=== PATIENT | male | born 1955 | race Native Hawaiian/Other Pacific Islander ===

== ENCOUNTER 2020-05-10 01:28 | Emergency (ER) | payer OTHER ==
[~2020-05-10] VITALS: Ht 172.7 cm; Wt 95.3 kg
[2020-05-10 01:28] VITALS: BP 132/70; TEMP 98.5
[2020-05-10 02:05] LABS: POTASSIUM 3.7 mmol/L (3.6-5.2)
[2020-05-10 02:16] LABS: PLATELET COUNT 148 K/uL (142-355)
[2020-05-10] MEDS ORDERED: GLIM2TAB PO (03:47)
[2020-05-10] MEDS ORDERED: ASPI81TA4 PO (03:48)
[2020-05-10] MEDS ORDERED: LIPITOR40 MG PO (03:50)
[2020-05-10] MEDS ORDERED: DIVA500T2 PO (03:55)
[2020-05-10] MEDS ORDERED: METFORMIN HCL PO ×2 (03:59→04:00)
[2020-05-10] MEDS ORDERED: PAXIL20 MG PO (04:02)
[2020-05-10] MEDS ORDERED: PROVERA5 MG PO (04:04)
[2020-05-10] MEDS ORDERED: SEROQUEL50 MG PO ×2 (04:06→04:07)
[2020-05-10] MEDS ORDERED: TRAMADOL HYDROC50 MG PO (04:08)
[2020-05-10] MEDS ORDERED: TRIA0.1C5 TOP (04:11)
[2020-05-10] MEDS ORDERED: ENAL5TAB PO (04:12)
== END 2020-05-10 02:42 | disposition other institution (70) ==
LOC: ED 01:28
PROVIDERS: Family Medicine
DX: F03.91 Unspecified dementia, unspecified severity, with behavioral disturbance (principal); Z11.59 Encounter for screening for other viral diseases; Z04.6 Encounter for general psychiatric examination, requested by authority
CPT/HCPCS: 36415; 80053; 81000; 85027; 87635; 93005; 99285; U0003

== ENCOUNTER 2020-08-19 15:08 | Emergency (ER) | payer OTHER ==
[~2020-08-19] VITALS: Ht 157.5 cm; Wt 93.0 kg
[~2020-08-19 15:08] MED LIST: ASPI81TA4 PO; CHOL100034 PO; CYAN10009 IM; DIVA250T PO; DIVA500T2 PO; ENAL5TAB PO; ESCI10TA PO; GLIM2TAB PO; LIPITOR40 MG PO; MEDR2.5T19 PO; METF500T PO; METFORMIN HCL PO; PAXIL20 MG PO; PROVERA5 MG PO; RISP0.25 PO; SEROQUEL50 MG PO; TRAMADOL HYDROC50 MG PO; TRIA0.1C5 TOP
[2020-08-19 15:16] VITALS: BP 148/81; TEMP 97.6
[2020-08-19 15:39] LABS: PLATELET COUNT 177 K/uL (142-355)
[2020-08-19 15:47] LABS: POTASSIUM 3.9 mmol/L (3.6-5.2)
[2020-08-19] MEDS ORDERED: LEXAPRO20 MG PO (18:21)
[2020-08-19] MEDS ORDERED: RISP1TAB PO (18:22)
[2020-08-19] MEDS ORDERED: DIVA125C PO (18:24)
[2020-08-19] MEDS ORDERED: MEDR2.5T19 PO (18:26)
[2020-09-10] MEDS ORDERED: QUET300T PO (09:20)
[2020-09-10] MEDS ORDERED: PANTOPRAZOLE 40MG TA PO (09:20)
[2020-09-10] MEDS ORDERED: QUET25TA2 PO (09:20)
[2020-09-10] MEDS ORDERED: MEDR150I3 IM (09:21)
[2020-09-10] MEDS ORDERED: DIVA250T PO ×2 (09:22)
[2020-09-10] MEDS ORDERED: CITA20TA2 PO (09:22)
[2020-09-10] MEDS ORDERED: MEDR2.5T19 PO (09:22)
== END 2020-08-19 17:15 | disposition other institution (70) ==
LOC: ED 15:08
PROVIDERS: Family Medicine
DX: R46.89 Other symptoms and signs involving appearance and behavior (principal); I10 Essential (primary) hypertension; F17.220 Nicotine dependence, chewing tobacco, uncomplicated; Z11.59 Encounter for screening for other viral diseases; Z04.6 Encounter for general psychiatric examination, requested by authority
CPT/HCPCS: 80053; 81000; 85027; 87635; 93005; 99283; 99285; U0003